=== PATIENT | male | born 1940 | race Caucasian/White ===

== ENCOUNTER 2021-05-27 16:26 | Emergency (ER) | payer MEDICARE, SELFPAY ==
--- NOTE | ~2021-05-27 | XR_ITS ---
EXAMINATION: RIGHT HAND CLINICAL INFORMATION: Dog bite with question of fracture COMPARISON: None TECHNIQUE: 4 views right hand FINDINGS: Some minimal degenerative changes present at the DIP joints. The exam is otherwise unremarkable. No fractures are seen. No radiopaque foreign bodies are detected. XR/XR hand wrist RT IMPRESSION: No evidence of a fracture. No foreign body seen.
[2021-05-27 16:29] VITALS: BP 144/65; PULSE 67; RESP 16; TEMP 37.2; O2SAT 99; BMI 31.0
--- NOTE | 2021-05-27 16:53 | ED.WOUNDLAC ---
HPI - Wound/Laceration General Chief Complaint: Wound/Laceration Stated Complaint: Dog bite Time Seen by Provider: 05/27/21 16:53 Source: patient Mode of arrival: ambulatory Limitations: no limitations History of Present Illness HPI narrative: Patient is an 80-year-old male with past medical history of aortic valve replacement on a blood thinner and COPD presents with a dog bite. Patient states his dog bit him approximately 4 hours ago on the right hand. He states his dog is vaccinated against rabies. He states is very painful and swollen and his hand is cramping. He did apply bacitracin when it 1st happened but it has become to painful so he came to the emergency department. Related Data Previous Rx's Medication Instructions Recorded amoxicillin 875 mg-potassium 1 tab PO Q12H 10 Days #20 tab 05/27/21 clavulanate 125 mg tablet (Augmentin) Allergies Allergy/AdvReac Type Severity Reaction Status Date / Time aspirin [ASPIRIN] Allergy Unknown ANAPHYLAXIS Verified 05/27/21 16:28 nitroglycerin [NITROGLYCERIN] Allergy Unknown SHORTNESS Verified 05/27/21 16:28 OF BREATH Review of Systems Review of Systems: Yes all other systems are reviewed and are negative [facility] Past Medical History Medical History (Updated 05/27/21 @ 16:55 by Natalie Powell PA-C) COPD (chronic obstructive pulmonary disease) Surgical History (Updated 05/27/21 @ 16:32 by Noemí Muñoz RN) Aortic valve replaced Social History Social History Advance Directives: Yes Advance Directives Information Provided: No Advance Directives on File: No Physical Exam Vital Signs: Vital Signs: Last Vital Signs Temp 98.9 F 05/27/21 16:29 Pulse 67 05/27/21 16:29 Resp 16 05/27/21 16:29 BP 144/65 H 05/27/21 16:29 Pulse Ox 99 05/27/21 16:29 Body Mass Index 31.0 Const: General: cooperative, healthy appearing, comfortable and no acute distress Nutritional Appearance: obese Orientation/consciousness: patient oriented x3 Limitations: no limitations HENMT: Head: Yes normal to inspection, Yes No palpable skull fracture present and Yes normocephalic Eyes: General: appearance normal, both eyes and all related structures Neuro: General: patient oriented x3 Extrem: Other: Right hand, wound on dorsal aspect at the base of the 1st digit. 2 cm curved wound, slightly bleeding. 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 MDM - Wound/Laceration Imaging Data hand xray: Attestation: I personally reviewed and interpreted this imaging study as follows: Radiologist's impression: [id number] [place] [address] XRay Report Signed Patient: Herb Beth MR#: [id number] : 1940 Acct:[id number] Age/Sex: 80 / M ADM Date: 05/27/21 Loc: HO.ED Attending Dr: Ordering Physician: Natalie Powell PA-C Date of Service: 05/27/21 Procedure(s): XR hand wrist RT Accession Number(s): [id number] cc: Natalie Powell PA-C~ EXAMINATION: RIGHT HAND CLINICAL INFORMATION: Dog bite with question of fracture? COMPARISON: None? TECHNIQUE: 4 views right hand? FINDINGS: Some minimal degenerative changes present at the DIP joints. The exam is otherwise unremarkable. No fractures are seen. No radiopaque foreign bodies are detected.? XR/XR hand wrist RT IMPRESSION: No evidence of a fracture. No foreign body seen.? Dictated By: GEN WHATLEY MD Signed By: <Electronically signed by GEN WHATLEY MD in OV> 05/27/218 DD/ 1703 TD/TT:? 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 If you have pain, the wound has foul-smelling discharge, yellow discharge or you notice red streaking up your hand and your arm, please return to the emergency department. If it starts bleeding again, please apply pressure for 15-20 minutes and call your PCP for guidance on your blood thinner. Prescriptions: New amoxicillin-pot clavulanate [Augmentin] 875-125 mg tablet 1 tab PO Q12H 10 Days Qty: 20 RF: 0
[2021-05-27 18:11] VITALS: PULSE 84; RESP 16; TEMP 37.1; O2SAT 95
[2021-05-27] MEDS: Diphth,Pertus(ACell),Tet Adult 0.5 ML SYRINGE IM (18:23)
== END 2021-05-27 18:59 | disposition home or self-care (01) ==
PROVIDERS: Emergency Provider Emergency Medicine Emergency Medical Services; PCP Internal Medicine
DX: S61.451A Open bite of right hand, initial encounter (principal); W54.0XXA Bitten by dog, initial encounter; Y93.89 Activity, other specified; Y92.019 Unspecified place in single-family (private) house as the place of occurrence of the external cause; Y99.9 Unspecified external cause status
CPT/HCPCS: 73110; 73130; 90471; 90715; 99284

== ENCOUNTER 2021-05-29 11:49 | Inpatient (IN) | payer MEDICARE, SELFPAY ==
--- NOTE | ~2021-05-29 | US_ITS ---
EXAMINATION: ULTRASOUND OF THE SOFT TISSUES OF THE RIGHT HAND and right forearm CLINICAL INFORMATION: Right hand and forearm cellulitis. Evaluate for abscess COMPARISON: None TECHNIQUE: Targeted ultrasound of the hand and forearm performed. FINDINGS: No focal fluid collection Changes in the subcutaneous soft tissues compatible with edema and/or cellulitis US/US extremity nonvascular IMPRESSION: No abscess. Soft tissue swelling in the subcutaneous soft tissues and informed compatible with cellulitis, edema, or combination of these
--- NOTE | ~2021-05-29 | US_ITS ---
EXAMINATION: US VENOUS WITH DOPPLER UPPER EXTREMITY, RIGHT CLINICAL INFORMATION: Right forearm pain and redness COMPARISON: Ultrasound of the soft tissues of the right arm performed same day TECHNIQUE: Ultrasound of the upper extremity is performed using compression sonography and color and pulse Doppler flow with assessment of augmentation of flow. There is also imaging and Doppler assessment of the jugular and subclavian veins. Spectral analysis with color-flow imaging is performed. FINDINGS: Respiratory variation, normal compression, and augmented flow are noted throughout the upper extremity including the axillary, brachial, cubital, and radial and ulnar veins. There is normal flow in the internal jugular and subclavian veins. There is no visible deep or superficial thrombophlebitis. If the patient's symptoms progress, a followup ultrasound in 5 -7 days might be of value to exclude proximal propagation from a nonvisualized distal arm vein. US/US venous duplex UE RT IMPRESSION: No DVT demonstrated in the right upper extremity
--- NOTE | ~2021-05-29 | XR_ITS ---
EXAMINATION: XR chest 2V CLINICAL INFORMATION: Reason for Exam cough, wheezing COMPARISON: No prior chest x-ray available in our system for comparison at the time of this dictation. TECHNIQUE: XR chest 2V Lungs and Irma: There is nodular opacity projecting over the right upper lobe roughly 1.4 cm concerning for possible lung nodule. There is underlying mild vascular congestion, hyperinflated lung, crowding of lung markings at the bases, cannot rule out superimposed mild interstitial pneumonitis. Pleura: Normal. Costophrenic angles are sharp. No pneumothorax. Heart: Postsurgical changes, cardiac valve prosthesis in place. Mediastinum: The mediastinum is within normal limits.. Bones: Skeletal structures included are normal for patient's age. XR/XR chest 2V IMPRESSION: Nodular opacity projecting over the right upper lobe superimposed on the anterior right third rib concerning for possible lung nodule. If patient has no prior chest x-ray at another institution for comparison, Consider correlation with follow-up CT scan. Underlying air trapping disease COPD. Mild vascular congestion. Increased interstitial opacification and lung marking at the bases, cannot rule out superimposed mild interstitial disease process..
[2021-05-29 12:31] VITALS: BP 158/70; PULSE 63; RESP 16; TEMP 36.7; O2SAT 93; BMI 30.1
--- NOTE | 2021-05-29 17:35 | ED.ANIMALBIT ---
HPI - Animal Bite General Chief Complaint: Animal Bite Stated Complaint: Dog Bite Time Seen by Provider: 05/29/21 17:14 Source: patient Mode of arrival: ambulatory Limitations: no limitations History of Present Illness HPI narrative: 80 yo Male with a past medical history of COPD, aortic valve replacement on Coumadin here with complaints of right upper extremity swelling and redness. Patient tells me on May 27 he was bit by his dog and the right hand. He was seen here in the emergency department and had a x-ray of the extremity which was negative. He was started on Augmentin b.i.d.. He was given a tetanus shot that day. The patient tells me he has taken 4 doses of Augmentin. He has had increasing redness and swelling up the arm. Denies any fevers or chills or body aches. He is complaining of mild shortness of breath and cough which he relates to his underlying COPD. No leg swelling, chest pain or fever associated with this. Related Data Home Medications Medication Instructions Recorded Confirmed allopurinol 100 mg tablet 2 tab PO DAILY 05/29/21 05/29/21 fluticasone 250 mcg-salmeterol 50 1 puff INHALATION BID 05/29/21 05/29/21 mcg/dose blistr powdr for inhalation (Wixela Inhub) furosemide 40 mg tablet 1 tab PO DAILY 05/29/21 05/29/21 gabapentin 100 mg capsule 1 - 3 cap PO BEDTIME PRN 05/29/21 05/29/21 roflumilast 250 mcg tablet 250 mcg PO DAILY 05/29/21 05/29/21 (Daliresp) sildenafil (pulm.hypertension) 20 2 tab PO TID 05/29/21 05/29/21 mg tablet tiotropium bromide 2.5 2 puff INHALATION DAILY 05/29/21 05/29/21 mcg/actuation mist for inhalation (Spiriva Respimat) warfarin 5 mg tablet 0.5 tab PO SUMOWETHFRSA 05/29/21 05/29/21 warfarin 5 mg tablet 1 tab PO TU 05/29/21 05/29/21 Allergies Allergy/AdvReac Type Severity Reaction Status Date / Time aspirin [ASPIRIN] Allergy Unknown ANAPHYLAXIS Verified 05/29/21 12:35 nitroglycerin [NITROGLYCERIN] Allergy Unknown SHORTNESS Verified 05/29/21 12:35 OF BREATH Review of Systems Review of Systems: Yes all other systems are reviewed and are negative Constitutional: Constitutional: Reports no additional constitutional complaints, Denies body ache(s), Denies chills, Denies fever(s), Denies headache(s) and Denies weakness Eyes: Eyes: Reports no additional eye complaints and Denies change in vision ENT: Reports system reviewed and no additional complaints, except as documented, Denies dizziness, Denies headache(s), Denies nasal congestion, Denies nasal discharge and Denies neck pain Cardiovascular: Cardiovascular: Reports no additional cardiovascular complaints, Denies chest pain, Denies leg edema and Reports dyspnea Respiratory: Respiratory: Reports no additional respiratory complaints, Reports cough and Reports dyspnea Gastrointestinal: Gastrointestinal: Reports no additional gastrointestinal complaints, Denies abdominal pain, Denies diarrhea, Denies nausea and Denies vomiting Genitourinary: Genitourinary: Denies urinary incontinence Musculoskeletal: Musculoskeletal: Reports no additional musculoskeletal complaints, Denies back pain, Denies arthralgias, Denies joint swelling, Denies neck pain, Denies numbness and Denies tingling Integumentary/Breasts: Skin/Breast: Reports system reviewed and no additional complaints, except as docu, Reports swelling, Reports erythema and Denies rash Neurologic: Reports system reviewed and no additional complaints, except as documented, Denies Abnormal speech present, Denies dizziness, Denies headache(s), Denies numbness, Denies tingling and Denies weakness PMFSH Past Medical History Attestation statement: The following information was validated with the patient. Source: old records reviewed and nursing notes reviewed Medical History COPD (chronic obstructive pulmonary disease) Surgical History Aortic valve replaced Social History Social History Alcohol intake: current Alcohol intake frequency: a few times a week Patient Tobacco Use Status: Never used Tobacco Use of substances other than those prescribed or required for medical reasons: No Advance Directives: Yes Advance Directives Information Provided: Yes Advance Directives on File: No Physical Exam Vital Signs: Vital Signs: Last Vital Signs Temp 98.6 F 05/29/21 19:38 Pulse 89 05/29/21 19:38 Resp 16 05/29/21 19:38 BP 130/60 05/29/21 19:38 Pulse Ox 90 L 05/29/21 19:38 Body Mass Index 30.1 Const: General: cooperative, healthy appearing, comfortable and no acute distress Orientation/consciousness: patient oriented x3 Limitations: no limitations HENMT: Head: Yes normal to inspection Ears: hearing grossly normal bilaterally General nose exam: Normal external nose present Face and sinus: Yes normal facial exam Mouth: Normal oral and palatal mucosa present Throat: Yes posterior oropharynx normal Eyes: General: appearance normal, both eyes and all related structures Pupils: Equal, round and reactive pupils present Neck: Neck: Yes normal visual inspection Chest: Chest palpation & inspection: normal inspection of the chest Resp: Other: prolonged expirations, mild exp wheezing Effort & Inspection: normal respiratory effort Cardio: Rate: regular rate Rhythm: regular rhythm Peripheral pulses: Peripheral pulses 2+ throughout GI: Inspection: Yes normal to inspection Palpation (GI): Soft to palpation and nontender Auscultation: normal bowel sounds Back/Spine/Pelvis: Thoracic/Lumbar Spine: thoracic and lumbar spine normal to inspection Skin: General skin exam: no rashes or lesions noted Neuro: General: patient oriented x3, no focal motor deficits and normal sensation to monofilament Cranial nerves: Yes Equal, round and reactive pupils present Cognition (Neuro): normal cognition Speech: No Abnormal speech present Gait exam (Neuro): Normal gait present Motor exam (neuro): 5/5 motor strength present throughout Extrem: Other: Full range of motion independently of the right upper extremity including both wrist and hand. No pain with passive extension or flexion of the right wrist General: Yes normal to inspection, Yes no pedal edema and Yes no calf tenderness Course Course Course Narrative: 80-year-old male here with complaints of right upper extremity swelling and redness after a dog bite 2 days ago. Patient has taken 4 doses of p.o. Augmentin since being seen here in the emergency department on May 27. He tells me swelling and redness are increasing with more pain over the hand. He denies any fevers or chills. He does have a right upper extremity cellulitis. Low concern for tenosynovitis with full range of motion of the upper extremity and no pain with past if flexion or extension of the wrist. However due to worsening redness and swelling despite being on antibiotics patient will require admission for IV antibiotics for cellulitis. Will check labs including blood cultures and lactic. At this time infection is suspected. Antibiotics ordered. Also complaining of some mild shortness of breath and cough which patient contributes to his underlying COPD with no reports of productive cough or fever. Will check chest x-ray, COVID screen and give DuoNeb and reassess. 194-labs are essentially unremarkable. Chest x-ray shows some chronic findings. COVID screen negative. Discussed patient with Dr. Tavarez who accepted admission of patient. MDM - Animal Bite Differential Diagnosis Differential diagnosis: Likely bite by animal Medical Records Attestation: I reviewed the patient's medical records. Lab Data Attestation: I reviewed the patient's lab results. Result diagrams: 05/29/21 18:00 05/29/21 18:00 Labs: Lab Results 05/29/21 05/29/21 05/29/21 Range/Units 18:00 18:00 18:00 WBC 10.9 H (4.8-10.8) X10*3/uL RBC 5.78 (4.60-5.80) X10*6/uL Hgb 17.6 (14.0-18.0) g/dl Hct 52.9 H (42-52) % MCV 91.5 (80-98) fL MCH 30.4 (27.0-33.0) pg MCHC 33.3 (31.0-36.0) g/dl RDW 15.3 (11.0-16.0) % Plt Count 262 (160-400) X10*3/uL MPV 10.2 (9.4-12.4) fL Immature Gran % (Auto) 0.3 (0.0-0.4) % Neut % (Auto) 63.6 (45-73) % Lymph % (Auto) 25.0 (20-40) % [place] % (Auto) 7.3 (2-11) % Eos % (Auto) 3.1 (0-4) % Baso % (Auto) 0.7 (0-2) % Lymph # (Auto) 2.7 (1.2-4.9) X10*3/uL [place] # (Auto) 0.8 (0.1-1.2) X10*3/uL Eos # (Auto) 0.3 (0.0-0.4) X10*3/uL Baso # (Auto) 0.1 (0.0-0.2) X10*3/uL Abs Immat Gran (auto) 0.03 (0.00-0.03) X10*3/uL Absolute Neuts (auto) 6.9 (2.0-8.3) X10*3/uL Absolute Nucleated RBC 0.000 (0.0-0.012) X10*3/uL Nucleated RBC % (auto) 0.0 (0.0-0.2) /100WBC PT (9.9-13.0) SEC INR (0.9-1.1) Sodium 140 (135-145) mmol/L Potassium 4.6 (3.3-5.1) mmol/L Chloride 106 (96-108) mmol/L Carbon Dioxide 20 L (22-29) mmol/L Anion Gap 19 (12-20) BUN 26 H (9-16) mg/dL Creatinine 1.15 (0.5-1.4) mg/dL Estim Creat Clear Calc 53.9 Estimated GFR > 60 Random Glucose 98 (60-115) mg/dL Lactic Acid 1.8 (0.5-2.0) mmol/L Calcium 9.0 (8.4-10.2) mg/dL Total Bilirubin 1.3 H (0.0-1.0) mg/dL Direct Bilirubin 0.4 (0.0-0.5) mg/dL AST 20 (5-37) U/L ALT 18 (0-40) U/L Alkaline Phosphatase 105 (39-117) U/L Total Protein 8.1 H (6.5-8.0) g/dL Albumin 4.4 (3.5-5.0) g/dL Coronavirus (PCR) (Negative) Influenza Type A (PCR) (Negative) Influenza Type B (PCR) (Negative) RSV RNA Qual (PCR) (Negative) 05/29/21 05/29/21 Range/Units 18:00 19:42 WBC (4.8-10.8) X10*3/uL RBC (4.60-5.80) X10*6/uL Hgb (14.0-18.0) g/dl Hct (42-52) % MCV (80-98) fL MCH (27.0-33.0) pg MCHC (31.0-36.0) g/dl RDW (11.0-16.0) % Plt Count (160-400) X10*3/uL MPV (9.4-12.4) fL Immature Gran % (Auto) (0.0-0.4) % Neut % (Auto) (45-73) % Lymph % (Auto) (20-40) % [place] % (Auto) (2-11) % Eos % (Auto) (0-4) % Baso % (Auto) (0-2) % Lymph # (Auto) (1.2-4.9) X10*3/uL [place] # (Auto) (0.1-1.2) X10*3/uL Eos # (Auto) (0.0-0.4) X10*3/uL Baso # (Auto) (0.0-0.2) X10*3/uL Abs Immat Gran (auto) (0.00-0.03) X10*3/uL Absolute Neuts (auto) (2.0-8.3) X10*3/uL Absolute Nucleated RBC (0.0-0.012) X10*3/uL Nucleated RBC % (auto) (0.0-0.2) /100WBC PT 28.5 H (9.9-13.0) SEC INR 2.5 H (0.9-1.1) Sodium (135-145) mmol/L Potassium (3.3-5.1) mmol/L Chloride (96-108) mmol/L Carbon Dioxide (22-29) mmol/L Anion Gap (12-20) BUN (9-16) mg/dL Creatinine (0.5-1.4) mg/dL Estim Creat Clear Calc Estimated GFR Random Glucose (60-115) mg/dL Lactic Acid (0.5-2.0) mmol/L Calcium (8.4-10.2) mg/dL Total Bilirubin (0.0-1.0) mg/dL Direct Bilirubin (0.0-0.5) mg/dL AST (5-37) U/L ALT (0-40) U/L Alkaline Phosphatase (39-117) U/L Total Protein (6.5-8.0) g/dL Albumin (3.5-5.0) g/dL Coronavirus (PCR) NEGATIVE (Negative) Influenza Type A (PCR) NEGATIVE (Negative) Influenza Type B (PCR) NEGATIVE (Negative) RSV RNA Qual (PCR) NEGATIVE (Negative) Imaging Data Chest x-ray: Attestation: I personally reviewed and interpreted this imaging study as follows: Radiologist's impression: [address] [address] XRay Report Signed Patient: Herb Beth MR#: [id number] : 1940 Acct:[id number] Age/Sex: 80 / M ADM Date: 05/29/21 Loc: .ED Attending Dr: Ordering Physician: XOCHITL CHAPMAN NP Date of Service: 05/29/21 Procedure(s): XR chest 2V Accession Number(s): [id number] cc: XOCHITL CHAPMAN NP~ EXAMINATION: XR chest 2V CLINICAL INFORMATION: Reason for Exam cough, wheezing COMPARISON: No prior chest x-ray available in our system for comparison at the time of this dictation.? TECHNIQUE: XR chest 2V Lungs and Irma: There is nodular opacity projecting over the right upper lobe roughly 1.4 cm concerning for possible lung nodule. There is underlying mild vascular congestion, hyperinflated lung, crowding of lung markings at the bases, cannot rule out superimposed mild interstitial pneumonitis. Pleura: Normal. Costophrenic angles are sharp. No pneumothorax. Heart: Postsurgical changes, cardiac valve prosthesis in place. Mediastinum: The mediastinum is within normal limits.. Bones: Skeletal structures included are normal for patient's age. XR/XR chest 2V IMPRESSION: Nodular opacity projecting over the right upper lobe superimposed on the anterior right third rib concerning for possible lung nodule. If patient has no prior chest x-ray at another institution for comparison, Consider correlation with follow-up CT scan. ? Underlying air trapping disease COPD. ? Mild vascular congestion. ? Increased interstitial opacification and lung marking at the bases, cannot rule out superimposed mild interstitial disease process.. Discharge Plan Discharge Clinical Impression: Dog bite, Cellulitis Patient Disposition: Admitted As Inpatient
[2021-05-29 18:06] LABS: MANUAL DIFF FLAG NO
[2021-05-29 18:08] VITALS: BP 177/75; PULSE 78; RESP 22; O2SAT 93
--- NOTE | 2021-05-29 18:10 | PC.NURSE ---
Pt comes to ED for dog bite on tuesday with increased redness/warmth to right arm. no fever/chills reported. Site marked with marker. IV line established and labs obtained.
[2021-05-29] MEDS: cefTRIAXone sodium 1 GM in 0.9 % Sodium Chloride 50 ML IV (18:41)
[2021-05-29 18:46] LABS: Lactic Acid 1.8 mmol/L (0.5-2.0)
[2021-05-29 18:59] LABS: Alanine Aminotransferase 18 U/L (0-40); Albumin Level 4.4 g/dL (3.5-5.0); Alkaline Phosphatase 105 U/L (39-117); Anion Gap 19 (12-20); Aspartate Amino Transferase 20 U/L (5-37); Bilirubin Direct 0.4 mg/dL (0.0-0.5); Bilirubin Total 1.3 mg/dL (0.0-1.0); Blood Urea Nitrogen 26 mg/dL (9-16); Carbon Dioxide 20 mmol/L (22-29); Chloride 106 mmol/L (96-108); Creatinine Clr Calc Pharmacy 53.9; Estimated Glomerular Filt Rate > 60; Glucose Random 98 mg/dL (60-115); Potassium 4.6 mmol/L (3.3-5.1); Sodium 140 mmol/L (135-145); Total Protein 8.1 g/dL (6.5-8.0)
[2021-05-29 19:02] LABS: Basophils Absolute Auto 0.1 X10*3/uL (0.0-0.2); Basophils Percent Auto 0.7 % (0-2); Eosinophils Absolute Auto 0.3 X10*3/uL (0.0-0.4); Eosinophils Percent Auto 3.1 % (0-4); Hematocrit 52.9 % (42-52); Hemoglobin 17.6 g/dl (14.0-18.0); Imm Gran Abs Auto 0.03 X10*3/uL (0.00-0.03); Imm Gran Pct Auto 0.3 % (0.0-0.4); Lymphocytes Absolute Auto 2.7 X10*3/uL (1.2-4.9); Mean Corpuscular HGB Conc 33.3 g/dl (31.0-36.0); Mean Corpuscular Hemoglobin 30.4 pg (27.0-33.0); Mean Corpuscular Volume 91.5 fL (80-98); Mean Platelet Volume 10.2 fL (9.4-12.4); Monocytes Absolute Auto 0.8 X10*3/uL (0.1-1.2); Monocytes Percent Auto 7.3 % (2-11); Neutrophils Absolute Auto 6.9 X10*3/uL (2.0-8.3); Neutrophils Percent Auto 63.6 % (45-73); Platelet Count 262 X10*3/uL (160-400); Red Blood Count 5.78 X10*6/uL (4.60-5.80); Red Cell Distribution Width 15.3 % (11.0-16.0); White Blood Count 10.9 X10*3/uL (4.8-10.8)
[2021-05-29] MEDS: metroNIDAZOLE/NS 500 MG/100 ML PIGGYBACK 100 MG IV (19:29)
--- NOTE | 2021-05-29 19:35 | PC.NURSE ---
Patient medicated per emar and labs drawn per ordered.
[2021-05-29 19:38] VITALS: BP 130/60; PULSE 89; RESP 16; TEMP 37; O2SAT 90
[2021-05-29 19:48] LABS: Influenza A PCR NEGATIVE (Negative); Influenza B PCR NEGATIVE (Negative); Resp Syncy Virus RNA Qual PCR NEGATIVE (Negative); SARS COV2 PCR INHOUSE NEGATIVE (Negative)
[2021-05-29 19:52] LABS: INTERNATIONAL NORM RATIO 2.5 (0.9-1.1); Prothrombin Time 28.5 SEC (9.9-13.0)
[2021-05-29] MEDS: Albuterol/Iprat 2.5/0.5MG 3 ML AMPUL.NEB INHALE (19:54)
[2021-05-29 19:55] VITALS: PULSE 90; O2SAT 90
[2021-05-29 19:59] VITALS: BP 112/81; PULSE 96; RESP 16; TEMP 36.6; O2SAT 94
--- NOTE | 2021-05-29 20:05 | P.HPHOSP_ITS ---
History of Present Illness Date of Service: 05/29/21 Chief Complaint: Right upper extremity cellulitis 80-year-old male with a past medical history of hypertension, hyperlipidemia, COPD, not on home oxygen, history of aortic valve replacement; AFib on Coumadin presented to the hospital today with a chief complaint of right upper extremity pain redness and swelling. Patient reports that the past few days ago on May 27 year dog bite on his and subsequently came to the ER for evaluation; he had x-rays done at that time which came back negative and subsequently patient was given Augmentin noted to have puncture wounds on his right hand; patient mentioned that he has been taking his Augmentin but he has continued to have the pain and increased redness which spread up to the forearm; as symptoms were not improving he decided to come to the ER for further help. Denies any fever chills cough. Denies any chest pain palpitations lightheadedness or dizziness Denies any numbness tingling in the upper extremity. Denies any GI or symptoms. Review of all other systems is negative except mentioned above ER course: Per ER team patient noted to pain redness and erythema noted up to the forearm; mildly swollen dorsum of the right hand; able to flex and extend the fingers; given ceftriaxone Flagyl. Admitted to the hospital for further management. [facility]LY [facility] Medical History COPD (chronic obstructive pulmonary disease) Surgical History Aortic valve replaced Social History Household Members: Family Household Members Other:: son Housing: House Alcohol intake: current Alcohol intake frequency: a few times a week Patient Tobacco Use Status: Never used Tobacco service: No Current occupational status: retired Meds Allergies Allergy/AdvReac Type Severity Reaction Status Date / Time aspirin [ASPIRIN] Allergy Unknown ANAPHYLAXIS Verified 05/29/21 12:35 nitroglycerin [NITROGLYCERIN] Allergy Unknown SHORTNESS Verified 05/29/21 12:35 OF BREATH Active Medications: Current Medications Generic Name Dose Route Start Last Admin Trade Name Freq PRN Reason Stop Dose Admin Acetaminophen 650 mg 05/29/21 19:59 Acetaminophen 325 Mg Tablet PO Q6H PRN Pain, Mild (Pain Scale 1-3) Albuterol/Ipratropium 3 ml 05/29/21 19:38 Albuterol/Iprat 2.5/0.5mg 3 Ml Ampul.Neb INHALE RQ4H PRN Shortness of Breath/Wheezing Ceftriaxone Sodium 1 gm/ 50 mls @ 100 mls/hr 05/30/21 18:00 Sodium Chloride IV Q24H [facility] Clindamycin Phosphate 600 mg in 50 mls @ 100 mls/hr 05/29/21 19:45 Cleocin IV Q8H [facility] Sodium Chloride 1,000 mls @ 75 mls/hr 05/29/21 20:00 Ns IVCONT .[id number] [facility] Melatonin 6 mg 05/29/21 19:59 Melatonin 3 Mg Tablet PO BEDTIME PRN Insomnia Oxycodone HCl 5 mg 05/29/21 19:59 Oxycodone Hcl Immed Release 5 Mg Tablet PO Q6H PRN Pain, Severe (Pain Scale 7-10) Pharmacy Consult 1 each 05/29/21 17:34 Consult Rx Perform Med Rec MISCELLANE ONCE PRN Consult order Senna 17.2 mg 05/29/21 19:59 Sennosides 8.6 Mg Tablet PO BEDTIME PRN Constipation Sodium Chloride 3 ml 05/30/21 00:00 0.9 % Sodium Chloride Flush 3 [facility] Medications Medication Instructions Recorded Confirmed Last Taken Type allopurinol 100 mg tablet 2 tab PO DAILY 05/29/21 05/29/21 05/29/21 History fluticasone 250 mcg-salmeterol 50 1 puff INHALATION BID 05/29/21 05/29/21 05/29/21 History mcg/dose blistr powdr for inhalation (Wixela Inhub) furosemide 40 mg tablet 1 tab PO DAILY 05/29/21 05/29/21 05/29/21 History gabapentin 100 mg capsule 1 - 3 cap PO BEDTIME PRN 05/29/21 05/29/21 05/28/21 History roflumilast 250 mcg tablet 250 mcg PO DAILY 05/29/21 05/29/21 05/29/21 History (Daliresp) sildenafil (pulm.hypertension) 20 2 tab PO TID 05/29/21 05/29/21 05/29/21 History mg tablet tiotropium bromide 2.5 2 puff INHALATION DAILY 05/29/21 05/29/21 05/29/21 History mcg/actuation mist for inhalation (Spiriva Respimat) warfarin 5 mg tablet 0.5 tab PO SUMOWETHFR05/29/21 05/29/21 05/29/21 History warfarin 5 mg tablet 1 tab PO TU 05/29/21 05/29/21 05/26/21 History Physical Exam Vital Signs and Narrative: Vital Signs: Last Vital Signs Temp 98.6 F 05/29/21 19:38 Pulse 90 05/29/21 19:55 Resp 16 05/29/21 19:38 BP 130/60 05/29/21 19:38 Pulse Ox 90 L 05/29/21 19:38 Body Mass Index 30.1 Gen: Appears be in no acute distress HEENT: NCAT, Moist mucosa. Pulmonary: Vesicular breath sounds, fair air entry CVS: Normal S1-S2 Abdomen: BS+, Soft, Nontender Extremities: Warm well perfused; the right upper extremity noted to small puncture wounds from the dog bite; home dorsum of the hand swollen; fingers appears to be within normal limits; right warm hyperemic and tender, circumferential. No discharge noticed. Range of motion intact at the elbow, wrist, fingers. Neuro: Alert and awake. Results Labs CBC and Chem 7: 05/30/21 06:11 05/30/21 06:11 Labs: Laboratory Results - last 24 hr 05/29/21 05/29/21 05/29/21 18:00 18:00 18:00 MCV 91.5 MCH 30.4 MCHC 33.3 RDW 15.3 Plt Count 262 MPV 10.2 Immature Gran % (Auto) 0.3 Neut % (Auto) 63.6 Lymph % (Auto) 25.0 [place] % (Auto) 7.3 Eos % (Auto) 3.1 Baso % (Auto) 0.7 Lymph # (Auto) 2.7 [place] # (Auto) 0.8 Eos # (Auto) 0.3 Baso # (Auto) 0.1 Abs Immat Gran (auto) 0.03 Absolute Neuts (auto) 6.9 Absolute Nucleated RBC 0.000 Nucleated RBC % (auto) 0.0 PT INR Anion Gap 19 Estim Creat Clear Calc 53.9 Estimated GFR > 60 Random Glucose 98 Lactic Acid 1.8 Calcium 9.0 Total Bilirubin 1.3 H Direct Bilirubin 0.4 AST 20 ALT 18 Alkaline Phosphatase 105 Total Protein 8.1 H Albumin 4.4 Coronavirus (PCR) Influenza Type A (PCR) Influenza Type B (PCR) RSV RNA Qual (PCR) 05/29/21 05/29/21 18:00 19:42 MCV MCH MCHC RDW Plt Count MPV Immature Gran % (Auto) Neut % (Auto) Lymph % (Auto) [place] % (Auto) Eos % (Auto) Baso % (Auto) Lymph # (Auto) [place] # (Auto) Eos # (Auto) Baso # (Auto) Abs Immat Gran (auto) Absolute Neuts (auto) Absolute Nucleated RBC Nucleated RBC % (auto) PT 28.5 H INR 2.5 H Anion Gap Estim Creat Clear Calc Estimated GFR Random Glucose Lactic Acid Calcium Total Bilirubin Direct Bilirubin AST ALT Alkaline Phosphatase Total Protein Albumin Coronavirus (PCR) NEGATIVE Influenza Type A (PCR) NEGATIVE Influenza Type B (PCR) NEGATIVE RSV RNA Qual (PCR) NEGATIVE Imaging Radiologist's Impressions: Impressions Chest X-Ray 05/29/21 17:31 IMPRESSION: Nodular opacity projecting over the right upper lobe superimposed on the anterior right third rib concerning for possible lung nodule. If patient has no prior chest x-ray at another institution for comparison, Consider correlation with follow-up CT scan. Underlying air trapping disease COPD. Mild vascular congestion. Increased interstitial opacification and lung marking at the bases, cannot rule out superimposed mild interstitial disease process.. Assessment and Plan (1) Cellulitis: Status: Acute 80-year-old male with a past medical history of hypertension, hyperlipidemia, COPD, history of aortic valve replacement; AFib on Coumadin p resented to the with a chief complaint right upper extremity pain redness and swelling; noted to have cellulitis. Patient has a history of dog bite. Admitted for further Right upper extremity cellulitis: Preceded by dog bite. Noted small puncture wounds clotted blood. Healing. Reportedly dog is fully vaccinated. Patient received tetanus vaccine when presented on 05/27/21 Noted erythema on the right dorsum of the hand and right forearm; range of motion intact. Compartments are soft. Patient denies any paresthesias. Will consult Orthopedics out any concerns for tenosynovitis. Patient currently flex and extend fingers. Will give the patient on ceftriaxone and clindamycin. Id consult for further recommendations. Will obtain venous duplex to rule out any blood clots and nonvascular ultrasound to rule out any abscess. History of COPD: Stable. Continue inhalers. Gissell p.r.n.. History of AFib: Patient is on Coumadin. Continue Coumadin for now based on INR. History of aortic valve replacement: Patient reports its bioprosthetic. DVT prophylaxis: Patient on Coumadin Code status: Code Quality Stroke Does the patient have a stroke diagnosis?: No VTE Prior VTE?: No VTE Risk Level:: Medical - moderate - high VTE Device Contraindication: Treatment Not Indicated VTE Drug Contraindication: Treatment Not Indicated
--- NOTE | 2021-05-29 20:13 | PC.NURSE ---
KENZIE LUQUE ASK ME TO PUT PATIENT ON 2 L O2
[2021-05-29] MEDS: Clindamycin Phosphate/D5W 600 MG/50 ML PIGGYBACK 100 MG IV (21:08)
[2021-05-29] MEDS: 0.9 % Sodium Chloride 1,000 ML 75 ML IVCONT (21:08)
--- NOTE | 2021-05-29 21:16 | PC.NURSE ---
Patients son to bring in patient's Revatio tomorrow. Not on out formulary.
--- NOTE | 2021-05-29 22:43 | MHC.CM.PN ---
CM met with patient. A&O. Very independent. Drives. IMM reviewed and signed 05/29/21@[id number]. Pt lives with his son. States both his Daughter, Anat Danielle ([phone]) and son, Herb Beth ([phone]) are his HCP. HCP is not on file. Pt has no services and uses home oxygen at night. Pt states he also uses a CPAP at night. D/C plan is home without services. If needs prolonged IV therapy, would like home IV therapy. Transportation home by family. CM to follow for d/c needs.
--- NOTE | 2021-05-29 22:59 | P.CONOP_ITS ---
History of Present Illness HPI Consult date: 05/29/21 Consult reason: other Chief complaint: cellulitis Narrative: 80 yo male presents to the ED after being bit by his woodrow on the right hand 05/27/21. Patient states that he was seen in the ED on 05/27/21 where x-rays were obtained and were negative for any fracture. The patient was then started on Augmentin. He has taken four doses of his Augmentin but noticed that the right hand erythema had significantly started to now extend proximally up his right arm. He presented to the ED this evening for reevaluation. He was started on IV abx and admitted to the medicine service. Review of Systems Review of Systems: Yes all other systems are reviewed and are negative PMFSH Past Medical History Medical History COPD (chronic obstructive pulmonary disease) Surgical History Surgical History Aortic valve replaced Social History Social History Household Members: Family Household Members Other:: son Housing: House Alcohol intake: current Alcohol intake frequency: a few times a week Patient Tobacco Use Status: Never used Tobacco Use of substances other than those prescribed or required for medical reasons: No Have you been hit, kicked, punched, or otherwise hurt by someone within the past year? If so, by whom?: No Do you feel safe in your current relationship?: No Is there a partner from a previous relationship who is making you feel unsafe now?: No Are you made to feel afraid or neglected: No Advance Directives: No Advance Directives Information Provided: No Advance Directives on File: No Do you have thoughts of harming others: None Do you have a plan to hurt others: No Plan Recently lost weight without trying: No Nutrition Risks: No Nutritional Risk service: No Current occupational status: retired Meds Allergies Allergy/AdvReac Type Severity Reaction Status Date / Time aspirin [ASPIRIN] Allergy Unknown ANAPHYLAXIS Verified 05/29/21 12:35 nitroglycerin [NITROGLYCERIN] Allergy Unknown SHORTNESS Verified 05/29/21 12:35 OF BREATH Active Medications: Current Medications Generic Name Dose Route Start Last Admin Trade Name Freq PRN Reason Stop Dose Admin Acetaminophen 650 mg 05/29/21 19:59 Acetaminophen 325 Mg Tablet PO Q6H PRN Pain, Mild (Pain Scale 1-3) Albuterol/Ipratropium 3 ml 05/29/21 19:38 Albuterol/Iprat 2.5/0.5mg 3 Ml Ampul.Neb INHALE RQ4H PRN Shortness of Breath/Wheezing Allopurinol 200 mg 05/30/21 09:00 Allopurinol 100 Mg Tablet PO DAILY [facility] Fluticasone/Vilanterol 1 puff 05/30/21 08:00 Fluticasone/Vilanterol 100/25 Blst.W.Dev INHALE RDAILY [facility] Furosemide 40 mg 05/30/21 09:00 Furosemide 40 Mg Tablet PO DAILY [facility] Protocol Gabapentin 100 - 300 mg 05/29/21 20:03 Gabapentin 100 Mg Capsule PO BEDTIME PRN pain Ceftriaxone Sodium 1 gm/ 50 mls @ 100 mls/hr 05/30/21 18:00 Sodium Chloride IV Q24H [facility] Clindamycin Phosphate 600 mg in 50 mls @ 100 mls/hr 05/29/21 19:45 05/29/21 22:58 Cleocin IV Infused Q8H [facility] Infusion Sodium Chloride 1,000 mls @ 75 mls/hr 05/29/21 20:00 05/29/21 21:08 Ns IVCONT 75 mls/hr .[id number] [facility] Administration Melatonin 6 mg 05/29/21 19:59 Melatonin 3 Mg Tablet PO BEDTIME PRN Insomnia Non-Formulary Medication 250 mcg 05/30/21 09:00 Roflumilast [Daliresp] PO DAILY [facility] Oxycodone HCl 5 mg 05/29/21 19:59 Oxycodone Hcl Immed Release 5 Mg Tablet PO Q6H PRN Pain, Severe (Pain Scale 7-10) Pharmacy Consult 1 each 05/29/21 17:34 Consult Rx Perform Med Rec MISCELLANE ONCE PRN Consult order Senna 17.2 mg 05/29/21 19:59 Sennosides 8.6 Mg Tablet PO BEDTIME PRN Constipation Sildenafil Citrate 40 mg 05/29/21 21:00 05/29/21 21:14 Sildenafil Citrate 20 Mg Tablet PO Not Given TID [facility] Sodium Chloride 3 ml 05/30/21 00:00 0.9 % Sodium Chloride Flush 3 Ml Syringe IVFLUSH QSHIFT [facility] Tiotropium [place] 1 puff 05/30/21 08:00 Tiotropium [place] 18 Mcg Cap.W.Dev INHALE RDAILY [facility] Warfarin Sodium 2.5 mg 05/30/21 18:00 Warfarin Sodium 2.5 Mg Tablet PO [id number] [facility] Warfarin Sodium 5 mg 06/02/21 18:00 Warfarin Sodium 5 Mg Tablet PO [id number] [facility] Home Medications Medication Instructions Recorded Confirmed Last Taken Type allopurinol 100 mg tablet 2 tab PO DAILY 05/29/21 05/29/21 05/29/21 History fluticasone 250 mcg-salmeterol 50 1 puff INHALATION BID 05/29/21 05/29/21 05/29/21 History mcg/dose blistr powdr for inhalation (Wixela Inhub) furosemide 40 mg tablet 1 tab PO DAILY 05/29/21 05/29/21 05/29/21 History gabapentin 100 mg capsule 1 - 3 cap PO BEDTIME PRN 05/29/21 05/29/21 05/28/21 History roflumilast 250 mcg tablet 250 mcg PO DAILY 05/29/21 05/29/21 05/29/21 History (Daliresp) sildenafil (pulm.hypertension) 20 2 tab PO TID 05/29/21 05/29/21 05/29/21 History mg tablet tiotropium bromide 2.5 2 puff INHALATION DAILY 05/29/21 05/29/21 05/29/21 History mcg/actuation mist for inhalation (Spiriva Respimat) warfarin 5 mg tablet 0.5 tab PO THFR05/29/21 05/29/21 05/29/21 History warfarin 5 mg tablet 1 tab PO TU 05/29/21 05/29/21 05/26/21 History Physical Exam Vital Signs: Vital Signs: Last Vital Signs Temp 97.8 F 05/29/21 19:59 Pulse 96 05/29/21 19:59 Resp 16 05/29/21 19:59 BP 112/81 05/29/21 19:59 Pulse Ox 94 05/29/21 19:59 Body Mass Index 30.1 Const: General: cooperative, healthy appearing and no acute distress Resp: Effort & Inspection: normal respiratory effort and able to speak in complete sentences Cardio: Rate: regular rate Peripheral pulses: Peripheral pulses 2+ throughout GI: Palpation (GI): Soft to palpation Skin: Lesions: no lesions Rashes: no rashes Extrem: Other: Right hand circumferential erythema extending distally dorsally to the elbow and volar to about mid forearm. He is able to demonstrate full elbow, wrist, hand, and digit ROM without difficulty or pain. No evidence of tenosynovitis. Radial pulse intact, Sensation intact. Results Labs Result Diagrams: 05/29/21 18:00 05/29/21 18:00 Labs: Abnormal lab results 05/29/21 05/29/21 05/29/21 Range/Units 18:00 18:00 19:42 WBC 10.9 H (4.8-10.8) X10*3/uL Hct 52.9 H (42-52) % PT 28.5 H (9.9-13.0) SEC INR 2.5 H (0.9-1.1) Carbon Dioxide 20 L (22-29) mmol/L BUN 26 H (9-16) mg/dL Total Bilirubin 1.3 H (0.0-1.0) mg/dL Total Protein 8.1 H (6.5-8.0) g/dL H & H 05/29/21 Range/Units 18:00 Hgb 17.6 (14.0-18.0) g/dl Hct 52.9 H (42-52) % Coagulation 05/29/21 Range/Units 19:42 INR 2.5 H (0.9-1.1) All other labs normal. Assessment and Plan (1) Dog bite: Status: Acute (2) Cellulitis: Status: Acute 80 yo male presents to the ED after sustaining a dog bite on 05/27/21. X- rays of the right hand obtained in the ED on 05/27/21 are negative for any acute fracutre or dislocation. He was started on Augmentin and after four doses he noticed an increase in the erythema of the right hand extending to the elbow. He presented to the ED this evening for reevaluation and was admitted to the medicine service for IV abx. There is no evidence of tenosynovitis at this time. No orthopedic care needed for right hand cellulitis. Medicine to continue IV abx. Procedures Date of Service Date of Service: 05/29/21
[2021-05-29] MEDS: Melatonin 3 MG TABLET 6 MG PO (23:43)
[2021-05-29 23:47] VITALS: BP 139/69; PULSE 75; RESP 18; TEMP 36.2; O2SAT 97
--- NOTE | 2021-05-30 | ECG_ITS ---
Test Reason : prolong QT Blood Pressure : / mmHG Vent. Rate : 061 BPM Atrial Rate : 061 BPM P-R Int : 216 ms QRS Dur : 132 ms QT Int : 460 ms P-R-T Axes : 053 094 -65 degrees QTc Int : 463 ms Sinus rhythm with 1st degree A-V block Rightward axis Non-specific intra-ventricular conduction block Cannot rule out Septal infarct , age undetermined Abnormal ECG When compared to the previous EKG of No significant changes seen Referred By: Nan Bueno Electronically Signed By:Kemar Lee
[2021-05-30 03:57] VITALS: BP 158/76; PULSE 56; RESP 16; TEMP 36.4; O2SAT 96
[2021-05-30] MEDS: Clindamycin Phosphate/D5W 600 MG/50 ML PIGGYBACK 100 MG IV ×3 (04:29→19:51)
[2021-05-30 06:33] LABS: MANUAL DIFF FLAG NO
[2021-05-30 06:49] LABS: Basophils Absolute Auto 0.1 X10*3/uL (0.0-0.2); Basophils Percent Auto 0.8 % (0-2); Eosinophils Absolute Auto 0.4 X10*3/uL (0.0-0.4); Eosinophils Percent Auto 4.8 % (0-4); Hematocrit 46.1 % (42-52); Hemoglobin 15.4 g/dl (14.0-18.0); Imm Gran Abs Auto 0.02 X10*3/uL (0.00-0.03); Imm Gran Pct Auto 0.2 % (0.0-0.4); Lymphocytes Percent Auto 22.5 % (20-40); Mean Corpuscular HGB Conc 33.4 g/dl (31.0-36.0); Mean Corpuscular Hemoglobin 30.5 pg (27.0-33.0); Mean Corpuscular Volume 91.3 fL (80-98); Mean Platelet Volume 9.8 fL (9.4-12.4); Monocytes Absolute Auto 0.6 X10*3/uL (0.1-1.2); Monocytes Percent Auto 7.2 % (2-11); Neutrophils Absolute Auto 5.8 X10*3/uL (2.0-8.3); Neutrophils Percent Auto 64.5 % (45-73); Platelet Count 235 X10*3/uL (160-400); Red Blood Count 5.05 X10*6/uL (4.60-5.80); Red Cell Distribution Width 15.3 % (11.0-16.0); White Blood Count 8.9 X10*3/uL (4.8-10.8)
[2021-05-30 07:00] LABS: INTERNATIONAL NORM RATIO 2.7 (0.9-1.1)
[2021-05-30 07:29] LABS: Anion Gap 15 (12-20); Blood Urea Nitrogen 27 mg/dL (9-16); Calcium 8.1 mg/dL (8.4-10.2); Carbon Dioxide 18 mmol/L (22-29); Chloride 110 mmol/L (96-108); Creatinine Clr Calc Pharmacy 54.3; Estimated Glomerular Filt Rate > 60; Glucose Random 116 mg/dL (60-115); Potassium 3.9 mmol/L (3.3-5.1); Sodium 139 mmol/L (135-145)
[2021-05-30 07:39] VITALS: BP 111/56; PULSE 56; RESP 17; TEMP 36.1; O2SAT 96
[2021-05-30] MEDS: 0.9 % Sodium Chloride Flush 3 ML SYRINGE IVFLUSH ×3 (08:40→20:41)
[2021-05-30] MEDS: Furosemide 40 MG TABLET PO (08:40)
[2021-05-30] MEDS: allopurinoL 100 MG TABLET 200 MG PO (08:40)
[2021-05-30] MEDS: Sildenafil Citrate 20 MG TABLET 40 MG PO ×2 (08:40→20:38)
[2021-05-30 11:50] VITALS: BP 115/58; PULSE 56; RESP 16; TEMP 36.3; O2SAT 92
--- NOTE | 2021-05-30 12:05 | HO.PM.IMPN ---
Subjective Subjective Date of Service: 05/30/21 Interval History: F/u right arm cellulitis from a dog bite. Cellulitis looks better today. Review of Systems Gen: no fever Resp: no sob, no cough CV: no chest, no BYNUM, no leg edema GI: No n/v, no abd pain Neuro: No confusion Physical Exam Vital Signs: Vital Signs: Last Vital Signs Temp 97.3 F 05/30/21 11:50 Pulse 56 05/30/21 11:50 Resp 16 05/30/21 11:50 BP 115/58 L 05/30/21 11:50 Pulse Ox 92 05/30/21 11:50 Body Mass Index 30.1 Const: Other: General: AO X 3, no acute distress Resp: CTA bilateral CVS: S1,S2,RRR GI: +BS, NT, no distention Skin: No rash, some redness of right arm that looks better, according to patient es Neuro: motor grossly intact Psych: appropriate affect Objective Data Current Medications Generic Name Dose Route Start Last Admin Trade Name Vuq PRN Reason Stop Dose Admin Acetaminophen 650 mg 05/29/21 19:59 Acetaminophen 325 Mg Tablet PO Q6H PRN Pain, Mild (Pain Scale 1-3) Albuterol/Ipratropium 3 ml 05/29/21 19:38 Albuterol/Iprat 2.5/0.5mg 3 Ml Ampul.Neb INHALE RQ4H PRN Shortness of Breath/Wheezing Allopurinol 200 mg 05/30/21 09:00 05/30/21 08:40 Allopurinol 100 Mg Tablet PO 200 mg DAILY ERENDIRA Administration Fluticasone/Vilanterol 1 puff 05/30/21 08:00 Fluticasone/Vilanterol 100/25 Blst.W.Dev INHALE RDAILY ERENDIRA Furosemide 40 mg 05/30/21 09:00 05/30/21 08:40 Furosemide 40 Mg Tablet PO 40 mg DAILY ERENDIRA Administration Protocol Gabapentin 100 - 300 mg 05/29/21 20:03 Gabapentin 100 Mg Capsule PO BEDTIME PRN pain Ceftriaxone Sodium 1 gm/ 50 mls @ 100 mls/hr 05/30/21 18:00 Sodium Chloride IV Q24H ERENDIRA Clindamycin Phosphate 600 mg in 50 mls @ 100 mls/hr 05/29/21 19:45 05/30/21 11:17 Cleocin IV 100 mls/hr Q8H ERENDIRA Administration Sodium Chloride 1,000 mls @ 75 mls/hr 05/29/21 20:00 05/30/21 11:05 Ns IVCONT Not Given .[id number] [facility] Melatonin 6 mg 05/29/21 19:59 05/29/21 23:43 Melatonin 3 Mg Tablet PO 6 mg BEDTIME PRN Administration Insomnia Non-Formulary Medication 250 mcg 05/30/21 09:00 Roflumilast [Daliresp] PO DAILY [facility] Oxycodone HCl 5 mg 05/29/21 19:59 Oxycodone Hcl Immed Release 5 Mg Tablet PO Q6H PRN Pain, Severe (Pain Scale 7-10) Pharmacy Consult 1 each 05/29/21 17:34 Consult Rx Perform Med Rec MISCELLANE ONCE PRN Consult order Senna 17.2 mg 05/29/21 19:59 Sennosides 8.6 Mg Tablet PO BEDTIME PRN Constipation Sildenafil Citrate 40 mg 05/29/21 21:00 05/30/21 08:40 Sildenafil Citrate 20 Mg Tablet PO 40 mg TID [facility] Administration Sodium Chloride 3 ml 05/30/21 00:00 05/30/21 08:40 0.9 % Sodium Chloride Flush 3 Ml Syringe IVFLUSH 3 ml QSHIFT [facility] Administration Tiotropium [place] 1 puff 05/30/21 08:00 Tiotropium [place] 18 Mcg Cap.W.Dev INHALE RDAILY [facility] Warfarin Sodium 2.5 mg 05/30/21 18:00 Warfarin Sodium 2.5 Mg Tablet PO [email or web address] [facility] Warfarin Sodium 5 mg 06/02/21 18:00 Warfarin Sodium 5 Mg Tablet PO Tu@1800 [facility] Labs CBC & Chem 7: 05/30/21 06:11 05/30/21 06:11 Labs: Laboratory Results - last 24 hr 05/29/21 05/29/21 05/29/21 18:00 18:00 18:00 MCV 91.5 MCH 30.4 MCHC 33.3 RDW 15.3 Plt Count 262 MPV 10.2 Immature Gran % (Auto) 0.3 Neut % (Auto) 63.6 Lymph % (Auto) 25.0 [place] % (Auto) 7.3 Eos % (Auto) 3.1 Baso % (Auto) 0.7 Lymph # (Auto) 2.7 [place] # (Auto) 0.8 Eos # (Auto) 0.3 Baso # (Auto) 0.1 Abs Immat Gran (auto) 0.03 Absolute Neuts (auto) 6.9 Absolute Nucleated RBC 0.000 Nucleated RBC % (auto) 0.0 PT INR Anion Gap 19 Estim Creat Clear Calc 53.9 Estimated GFR > 60 Random Glucose 98 Lactic Acid 1.8 Calcium 9.0 Total Bilirubin 1.3 H Direct Bilirubin 0.4 AST 20 ALT 18 Alkaline Phosphatase 105 Total Protein 8.1 H Albumin 4.4 Coronavirus (PCR) Influenza Type A (PCR) Influenza Type B (PCR) RSV RNA Qual (PCR) 05/29/21 05/29/21 05/30/21 18:00 19:42 06:11 MCV MCH MCHC RDW Plt Count MPV Immature Gran % (Auto) Neut % (Auto) Lymph % (Auto) [place] % (Auto) Eos % (Auto) Baso % (Auto) Lymph # (Auto) [place] # (Auto) Eos # (Auto) Baso # (Auto) Abs Immat Gran (auto) Absolute Neuts (auto) Absolute Nucleated RBC Nucleated RBC % (auto) PT 28.5 H 31.0 H INR 2.5 H 2.7 H Anion Gap Estim Creat Clear Calc Estimated GFR Random Glucose Lactic Acid Calcium Total Bilirubin Direct Bilirubin AST ALT Alkaline Phosphatase Total Protein Albumin Coronavirus (PCR) NEGATIVE Influenza Type A (PCR) NEGATIVE Influenza Type B (PCR) NEGATIVE RSV RNA Qual (PCR) NEGATIVE 05/30/21 05/30/21 06:11 06:11 MCV 91.3 MCH 30.5 MCHC 33.4 RDW 15.3 Plt Count 235 MPV 9.8 Immature Gran % (Auto) 0.2 Neut % (Auto) 64.5 Lymph % (Auto) 22.5 [place] % (Auto) 7.2 Eos % (Auto) 4.8 H Baso % (Auto) 0.8 Lymph # (Auto) 2.0 [place] # (Auto) 0.6 Eos # (Auto) 0.4 Baso # (Auto) 0.1 Abs Immat Gran (auto) 0.02 Absolute Neuts (auto) 5.8 Absolute Nucleated RBC 0.000 Nucleated RBC % (auto) 0.0 PT INR Anion Gap 15 Estim Creat Clear Calc 54.3 Estimated GFR > 60 Random Glucose 116 H Lactic Acid Calcium 8.1 L D Total Bilirubin Direct Bilirubin AST ALT Alkaline Phosphatase Total Protein Albumin Coronavirus (PCR) Influenza Type A (PCR) Influenza Type B (PCR) RSV RNA Qual (PCR) Assessment and Plan (1) Dog bite: Status: Acute (2) Cellulitis: Status: Acute Assessment and Plan: Right arm cellulitis from dog bite--clinically improving, got Ceftriaxone, better choice will Unassyn or Zosyn, change to Unasyn--and Augmentin for discharge. ID consult and Ortho consult pending Quality Stroke Does the patient have a stroke diagnosis?: No VTE Prior VTE?: No VTE Risk Level:: Medical - moderate - high VTE Device Contraindication: Treatment Not Indicated VTE Drug Contraindication: Treatment Not Indicated
--- NOTE | 2021-05-30 14:16 | W.PM.IDCN ---
History of Present Illness Data of Consult Service Date: 05/30/21 Requesting physician: Jerod Toribio Primary Care Provider: Boby Nelson MD [facility] Reason for consult: right arm cellulitis,dog bite He was bitten by dog 3 days ago while trying to get dog in house. It is an arthritic [age] year old [place] dog so teeth holes on right hand are relatively large. He sought care and was started on Augmentin which he took four doses of and got tetanus shot. He had streaking redness so came in to ER Review of Systems Review of Systems: Yes all other systems are reviewed and are negative [facility] Past Medical History Medical History COPD (chronic obstructive pulmonary disease) Surgical History Surgical History Aortic valve replaced Social History Social History Household Members: Family Household Members Other:: son Housing: House Alcohol intake: current Alcohol intake frequency: a few times a week Patient Tobacco Use Status: Never used Tobacco service: No Current occupational status: retired Meds Allergies Allergy/AdvReac Type Severity Reaction Status Date / Time aspirin [ASPIRIN] Allergy Unknown ANAPHYLAXIS Verified 05/29/21 12:35 nitroglycerin [NITROGLYCERIN] Allergy Unknown SHORTNESS Verified 05/29/21 12:35 OF BREATH Active Medications: Current Medications Generic Name Dose Route Start Last Admin Trade Name Freq PRN Reason Stop Dose Admin Acetaminophen 650 mg 05/29/21 19:59 Acetaminophen 325 Mg Tablet PO Q6H PRN Pain, Mild (Pain Scale 1-3) Albuterol/Ipratropium 3 ml 05/29/21 19:38 Albuterol/Iprat 2.5/0.5mg 3 Ml Ampul.Neb INHALE RQ4H PRN Shortness of Breath/Wheezing Allopurinol 200 mg 05/30/21 09:00 05/30/21 08:40 Allopurinol 100 Mg Tablet PO 200 mg DAILY ERENDIRA Administration Fluticasone/Vilanterol 1 puff 05/30/21 08:00 Fluticasone/Vilanterol 100/25 Blst.W.Dev INHALE RDAILY ERENDIRA Furosemide 40 mg 05/30/21 09:00 05/30/21 08:40 Furosemide 40 Mg Tablet PO 40 mg DAILY [facility] Administration Protocol Gabapentin 100 - 300 mg 05/29/21 20:03 Gabapentin 100 Mg Capsule PO BEDTIME PRN pain Ceftriaxone Sodium 1 gm/ 50 mls @ 100 mls/hr 05/30/21 18:00 Sodium Chloride IV Q24H [facility] Clindamycin Phosphate 600 mg in 50 mls @ 100 mls/hr 05/29/21 19:45 05/30/21 12:22 Cleocin IV Infused Q8H [facility] Infusion Melatonin 6 mg 05/29/21 19:59 05/29/21 23:43 Melatonin 3 Mg Tablet PO 6 mg BEDTIME PRN Administration Insomnia Non-Formulary Medication 250 mcg 05/30/21 09:00 Roflumilast [Daliresp] PO DAILY [facility] Oxycodone HCl 5 mg 05/29/21 19:59 Oxycodone Hcl Immed Release 5 Mg Tablet PO Q6H PRN Pain, Severe (Pain Scale 7-10) Pharmacy Consult 1 each 05/29/21 17:34 Consult Rx Perform Med Rec MISCELLANE ONCE PRN Consult order Senna 17.2 mg 05/29/21 19:59 Sennosides 8.6 Mg Tablet PO BEDTIME PRN Constipation Sildenafil Citrate 40 mg 05/29/21 21:00 05/30/21 08:40 Sildenafil Citrate 20 Mg Tablet PO 40 mg TID [facility] Administration Sodium Chloride 3 ml 05/30/21 00:00 05/30/21 08:40 0.9 % Sodium Chloride Flush 3 Ml Syringe IVFLUSH 3 ml QSHIFT [facility] Administration Tiotropium [place] 1 puff 05/30/21 08:00 Tiotropium [place] 18 Mcg Cap.W.Dev INHALE RDAILY [facility] Warfarin Sodium 2.5 mg 05/30/21 18:00 Warfarin Sodium 2.5 Mg Tablet PO [email or web address] [facility] Warfarin Sodium 5 mg 06/02/21 18:00 Warfarin Sodium 5 Mg Tablet PO Tu@1800 [facility] Home Medications Medication Instructions Recorded Confirmed Last Taken Type allopurinol 100 mg tablet 2 tab PO DAILY 05/29/21 05/29/21 05/29/21 History fluticasone 250 mcg-salmeterol 50 1 puff INHALATION BID 05/29/21 05/29/21 05/29/21 History mcg/dose blistr powdr for inhalation (Wixela Inhub) furosemide 40 mg tablet 1 tab PO DAILY 05/29/21 05/29/21 05/29/21 History gabapentin 100 mg capsule 1 - 3 cap PO BEDTIME PRN 05/29/21 05/29/21 05/28/21 History roflumilast 250 mcg tablet 250 mcg PO DAILY 05/29/21 05/29/21 05/29/21 History (Daliresp) sildenafil (pulm.hypertension) 20 2 tab PO TID 05/29/21 05/29/21 05/29/21 History mg tablet tiotropium bromide 2.5 2 puff INHALATION DAILY 05/29/21 05/29/21 05/29/21 History mcg/actuation mist for inhalation (Spiriva Respimat) warfarin 5 mg tablet 0.5 tab PO SUMOWETHFRSA 05/29/21 05/29/21 05/29/21 History warfarin 5 mg tablet 1 tab PO TU 05/29/21 05/29/21 05/26/21 History Physical Exam Vital Signs: Vital Signs: Last Vital Signs Temp 97.3 F 05/30/21 11:50 Pulse 56 05/30/21 11:50 Resp 16 05/30/21 11:50 BP 115/58 L 05/30/21 11:50 Pulse Ox 92 05/30/21 11:50 Body Mass Index 30.1 Const: General: cooperative Orientation/consciousness: patient oriented x3 HENMT: Head: Yes normal to inspection Mouth: Normal oral and palatal mucosa present Resp: Effort & Inspection: normal respiratory effort Cardio: Rate: regular rate Rhythm: regular rhythm GI: Palpation (GI): Soft to palpation and nontender Skin: Other: some bruising ( Coumadin) Neuro: General: patient oriented x3 Extrem: Other: right arm streaking red to axilla 2 tooth holes snuff box hand Results Labs CBC & Chem 7: 05/30/21 06:11 05/30/21 06:11 Labs: Short CBC 05/29/21 05/30/21 Range/Units 18:00 06:11 WBC 10.9 H 8.9 (4.8-10.8) X10*3/uL Hgb 17.6 15.4 (14.0-18.0) g/dl Hct 52.9 H 46.1 (42-52) % Plt Count 262 235 (160-400) X10*3/uL BMP 05/29/21 05/30/21 18:00 06:11 Sodium 140 139 Potassium 4.6 3.9 Chloride 106 110 H Carbon Dioxide 20 L 18 L BUN 26 H 27 H Creatinine 1.15 1.14 Calcium 9.0 8.1 L D Liver Function 05/29/21 Range/Units 18:00 Total Bilirubin 1.3 H (0.0-1.0) mg/dL Direct Bilirubin 0.4 (0.0-0.5) mg/dL AST 20 (5-37) U/L ALT 18 (0-40) U/L Alkaline Phosphatase 105 (39-117) U/L Albumin 4.4 (3.5-5.0) g/dL Assessment and Plan (1) Dog bite: Status: Acute (2) Cellulitis: Status: Acute Organisms from dog bite include Pasturella,gram negative,anerobes,staph He had tetanus shot and dog UTD rabies vaccine He has failed po Augmentin Continue Clindamycin Would give Levaquin instead of Ceftriaxone if QT interval not prolonged over 500 Will check EKG Hopefully po Levaquin and Clindamycin 300 mg tid as outpatient for 7 days
[2021-05-30 15:13] VITALS: BP 126/59; PULSE 61; RESP 19; TEMP 36.6; O2SAT 92
[2021-05-30] MEDS: cefTRIAXone sodium 1 GM in 0.9 % Sodium Chloride 50 ML IV (17:13)
[2021-05-30] MEDS: Warfarin Sodium 2.5 MG TABLET PO (17:22)
[2021-05-30 19:05] VITALS: BP 143/66; PULSE 62; RESP 19; TEMP 36.7; O2SAT 92
[2021-05-30] MEDS: Gabapentin 100 MG CAPSULE PO (20:38)
[2021-05-30 23:42] VITALS: BP 147/68; PULSE 61; RESP 18; TEMP 36.1; O2SAT 93
[2021-05-31 03:44] VITALS: BP 150/68; PULSE 59; RESP 18; TEMP 36.4; O2SAT 96
[2021-05-31] MEDS: Clindamycin Phosphate/D5W 600 MG/50 ML PIGGYBACK 100 MG IV (04:30)
[2021-05-31 08:00] VITALS: BP 139/68; PULSE 64; RESP 17; TEMP 36.1; O2SAT 92
[2021-05-31 09:17] LABS: INTERNATIONAL NORM RATIO 2.6 (0.9-1.1); Prothrombin Time 30.2 SEC (9.9-13.0)
[2021-05-31] MEDS: levoFLOXacin 500 MG TABLET PO (09:28)
[2021-05-31] MEDS: allopurinoL 100 MG TABLET 200 MG PO (09:28)
[2021-05-31] MEDS: Sildenafil Citrate 20 MG TABLET 40 MG PO (09:28)
[2021-05-31] MEDS: Furosemide 40 MG TABLET PO (09:29)
[2021-05-31] MEDS: 0.9 % Sodium Chloride Flush 3 ML SYRINGE IVFLUSH (09:32)
--- NOTE | 2021-05-31 09:51 | P.DS_ITS ---
DS: Providers Provider Date of Service: 05/31/21 Date of admission: 05/29/21 19:59 Primary care physician: Boby Nelson MD Consults: 05/29/21 19:38 Consult to Infectious Diseases Routine Consulting Provider: Nan Bueno Reason for consultation: RUE cellulitis; recent dog bite 05/29/21 19:59 Consult to Orthopedics Routine Consulting Provider: Jono León Reason for consultation: hand cellulitis; ?tenosinuvitis DS: Diagnosis Discharge Diagnosis (1) Dog bite: Status: Acute (2) Cellulitis: Status: Acute DS: Summary Hospital Course Hospital Course: Chief Complaint: Right upper extremity cellulitis 80-year-old male with a past medical history of hypertension, hyperlipidemia, COPD, not on home oxygen, history of aortic valve replacement; AFib on Coumadin presented to the hospital today with a chief complaint of right upper extremity pain redness and swelling. Patient reports that the past few days ago on May 25 year dog bite on his and subsequently came to the ER for evaluation; he had x-rays done at that time which came back negative and subsequently patient was given Augmentin noted to have puncture wounds on his right hand; patient mentioned that he has been taking his Augmentin but he has continued to have the pain and increased redness which spread up to the forearm; as symptoms were not improving he decided to c ome to the ER for further help. Denies any fever chills cough. Denies any chest pain palpitations lightheadedness or dizziness Denies any numbness tingling in the upper extremity. Denies any GI or symptoms. Review of all other systems is negative except mentioned above ER course:? Per ER team patient noted to pain redness and erythema noted up to the forearm; mildly swollen dorsum of the right hand; able to flex and extend the fingers; given ceftriaxone Flagyl.? Admitted to the hospital for further management. Hospital course: Patient was admitted due to cellulitis of the right arm due to dog bite and was treated on with oral Augmentin at home but infection was spreading and so he came to ED were xray showed no actue finding and has been treated with Clindamycin and Ceftriaxone, initially. He was evaluated by ID Dr. Bueno and she's recommending Levaquin and Clindamycin for 7 days. Overall there is marked improvment in the erythem and swelling and has no trouble using the arm or hand. He was also seen by ortho with no indication for any procedures. Time Spent with Patient Time attestation: Total time spent providing and/or coordinating discharge services: Discharge coordination time: Greater than 30 minutes Quality: Stroke Does the patient have a stroke diagnosis?: No Physical Exam Vital Signs: Vital Signs: Last Vital Signs Temp 97.0 F 05/31/21 08:00 Pulse 64 05/31/21 08:00 Resp 17 05/31/21 08:00 BP 139/68 05/31/21 08:00 Pulse Ox 92 05/31/21 08:00 Body Mass Index 30.1 Const: Other: General: AO X 3, no acute distress Resp: CTA bilateral CVS: S1,S2,RRR GI: +BS, NT, no distention Skin: No rash, some redness of right arm that looks better, according to patient es Neuro: motor grossly intact Psych: appropriate affect General: cooperative, healthy appearing, comfortable and no acute distress Orientation/consciousness: patient oriented x3 Limitations: no limitations HENMT: Head: Yes normal to inspection Ears: hearing grossly normal bilaterally General nose exam: Normal external nose present Face and sinus: Yes normal facial exam Mouth: Normal oral and palatal mucosa present Throat: Yes posterior oropharynx normal Eyes: General: appearance normal, both eyes and all related structures Pupils: Equal, round and reactive pupils present Neck: Neck: Yes normal visual inspection Chest: Chest palpation & inspection: normal inspection of the chest Resp: Other: prolonged expirations, mild exp wheezing Effort & Inspection: normal respiratory effort and able to speak in complete sentences Cardio: Rate: regular rate Rhythm: regular rhythm Peripheral pulses: Peripheral pulses 2+ throughout GI: Inspection: Yes normal to inspection Palpation (GI): Soft to palpation and nontender Auscultation: normal bowel sounds Back/Spine/Pelvis: Thoracic/Lumbar Spine: thoracic and lumbar spine normal to inspection Skin: Other: some bruising ( Coumadin) General skin exam: no rashes or lesions noted Lesions: no lesions Rashes: no rashes Neuro: General: patient oriented x3, no focal motor deficits and normal sensation to monofilament Cranial nerves: Yes Equal, round and reactive pupils present Cognition (Neuro): normal cognition Speech: No Abnormal speech present Gait exam (Neuro): Normal gait present Motor exam (neuro): 5/5 motor strength present throughout Extrem: Other: right arm streaking red to axilla 2 tooth holes snuff box hand General: Yes normal to inspection, Yes no pedal e jennifer and Yes no calf tenderness DS: Data Data Completed and Pending Labs on day of discharge: Laboratory Results - last 24 hr 05/31/21 08:46 PT 30.2 H INR 2.6 H Preliminary micro results at discharge 05/29/21 18:33 Blood Culture - Preliminary Blood - Venous No growth after 24 hours. 05/29/21 18:00 Blood Culture - Preliminary Blood - Venous No growth after 24 hours. Discharge Plan Discharge Anticipated Discharge Date/Time: 05/31/21 09:44 Patient Disposition: Home, Self-Care Discharge Diagnosis: Dogbite Cellulitis of the arm Referrals: Boby Nelson MD [Primary Care Provider] - 1 Week Discharge Medications: New levofloxacin 500 mg Tablet 500 mg PO Q24H Qty: 6 RF: 0 clindamycin HCl 300 mg capsule 300 mg PO Q8H Qty: 15 RF: 0 Continued furosemide 40 mg tablet 1 tab PO DAILY RF: 0 fluticasone propion-salmeterol [Wixela Inhub] 250-50 mcg/dose blister with device 1 puff inhalation BID RF: 0 allopurinol 100 mg tablet 2 tab PO DAILY RF: 0 warfarin 5 mg tablet 1 tab PO TU RF: 0 gabapentin 100 mg capsule 1 - 3 cap PO BEDTIME PRN (Reason: pain) RF: 0 sildenafil (pulm.hypertension) 20 mg tablet 2 tab PO TID RF: 0 Spiriva Respimat 2.5 mcg/actuation mist 2 puff inhalation DAILY RF: 0 warfarin 5 mg tablet 0.5 tab PO SUMOWETHFRSA RF: 0 Daliresp 250 mcg Tablet 250 mcg PO DAILY RF: 0 Discharge Orders: Discharge Order (Routine); Ordered 05/31/21 Ordered By: Jerod Toribio Diet: advance to usual diet Activity on Discharge: As tolerated Stand Alone Forms: Patient Portal Discharge page Care Plan Goals: Full recovery from cellulitis Health Concerns: Cellulitis of the arm to dog bite Plan of Treatment: Take Clindamycin and Levaquin as prescribed and follow up with your Doctor in a week, call for appointment, come back to emergency if worsening pain, redness or fever or anything unsual. Check to make sure that your Dog is uptodate on all vaccinations Assessment: as above Discharge Date/Time: 05/31/21 10:32
--- NOTE | 2021-05-31 10:57 | MHC.CM.PN ---
PT CLEARED TO DISCHARGE HOME TODAY WITH NO SERVICES
== END 2021-05-31 10:32 | disposition home or self-care (01) | DRG 603 ==
LOC: HO.ED 19:54 → HO.EDOVER 20:25 → HO.S3 20:39
PROVIDERS: Nurse Practitioner Family; Admitting Provider Hospitalist; Emergency Provider Emergency Medicine; PCP Internal Medicine; Visit Provider Internal Medicine
DX: L03.113 Cellulitis of right upper limb (principal); I10 Essential (primary) hypertension; E78.5 Hyperlipidemia, unspecified; I48.91 Unspecified atrial fibrillation; J44.9 Chronic obstructive pulmonary disease, unspecified; Z20.822 Contact with and (suspected) exposure to COVID-19; Z95.2 Presence of prosthetic heart valve; Z88.6 Allergy status to analgesic agent; Z79.51 Long term (current) use of inhaled steroids; Z79.01 Long term (current) use of anticoagulants; Z79.899 Other long term (current) drug therapy
CPT/HCPCS: 0241U; 36415; 71046; 73110; 73130; 76882; 80048; 80076; 83605; 85025; 85610; 87040; 90471; 90715; 93005; 93971; 94640; 99284; 99285; J0696